=== PATIENT | female | born 1985 | race Caucasian/White ===

== ENCOUNTER 2017-08-18 10:15 | Outpatient (CLI) | payer BC | END 2017-08-18 10:16 | disposition home or self-care (01) | LOC: BICRAD 10:15 | PROVIDERS: ATTEND Surgery | DX: M54.5 Low back pain (principal); M47.816 Spondylosis without myelopathy or radiculopathy, lumbar region | CPT/HCPCS: 72110 ==

== ENCOUNTER 2017-09-10 10:44 | Outpatient (CLI) | payer BC ==
[2017-09-10] MEDS ORDERED: Gadobenate Dimeglumine 529 MG/1 ML (20ML VIAL) ONE (14:22)
== END 2017-09-10 10:45 | disposition home or self-care (01) ==
LOC: BICMRI 10:44
PROVIDERS: ATTEND Surgery
DX: M47.26 Other spondylosis with radiculopathy, lumbar region (principal); M51.16 Intervertebral disc disorders with radiculopathy, lumbar region
CPT/HCPCS: 72158; A9579

== ENCOUNTER 2017-09-30 09:14 | Outpatient (CLI) | payer BC ==
[2017-09-30 10:38] LABS: Hemoglobin 14.5 g/dL (12.0-16.0); Mean Corpuscular Hemoglobin 29.9 pg (27.0-31.0); Mean Corpuscular Volume 90.6 fl (81.0-99.0); Mean Platelet Volume 6.4 fL (7.4-10.4); Platelet Count 363 thou/uL (130-400); RBC Distribution Width 12.5 % (11.5-14.5); Red Blood Cell (RBC) Count 4.85 mill/uL (4.20-5.40); White Blood Cell (WBC) Count 10.7 thou/uL (4.8-10.8)
[2017-09-30 10:50] LABS: PTT 32.3 SEC (22.9-36.1); Prothrombin Time 13.6 SEC (12.0-14.7)
[2017-09-30 10:55] LABS: Anion Gap 9 mmol/L (10-20); BUN (Urea Nitrogen) 14 mg/dL (7.0-18.7); Calc. Creatinine Clearance 0 mL/min (70-130); Calcium 9.4 mg/dL (7.8-10.44); Carbon Dioxide 29 mmol/L (22-29); Chloride 106 mmol/L (98-107); Estimated GFR-MDRD Greater than 90; Glucose 84 mg/dL (70-105); Potassium 4.1 mmol/L (3.5-5.1); Sodium 140 mmol/L (136-145)
[2017-09-30 10:56] LABS: BHCG - Serum Negative (NEGATIVE); Pregs Control Background? CLEAR/WHITE (CLR/WHITE); Pregs Control Bar Appear? YES (CONTROL BAR)
--- NOTE | 2017-12-04 13:57 | EKG ---
Test Reason : Blood Pressure : / mmHG Vent. Rate : 071 BPM Atrial Rate : 071 BPM P-R Int : 140 ms QRS Dur : 086 ms QT Int : 372 ms P-R-T Axes : 053 091 044 degrees QTc Int : 404 ms Normal sinus rhythm with sinus arrhythmia Rightward axis Borderline ECG Confirmed by MITUL JONES, LESIA ([id number]) on 12/04/2017 1:56:38 PM Referred By: DOROTHY Confirmed By:LESIA BAUMAN MD
== END 2017-09-30 09:15 | disposition home or self-care (01) ==
LOC: LABBT 09:14
PROVIDERS: ATTEND Surgery
DX: Z01.818 Encounter for other preprocedural examination (principal); M54.16 Radiculopathy, lumbar region; M51.26 Other intervertebral disc displacement, lumbar region
CPT/HCPCS: 80048; 84703; 85027; 85610; 85730; 93005; 93010

== ENCOUNTER 2017-10-07 07:17 | Day surgery (SDC) | payer BC ==
[2017-09-30 09:40] VITALS: BMI 34.4
[2017-10-07] MEDS ORDERED: CEFAZOLIN/Water 2 GM/20 ML SYRINGE ONE (08:09)
[2017-10-07] MEDS ORDERED: Sodium Chloride 0.9% 10 ML ONE (09:40)
[2017-10-07] MEDS ORDERED: Bacitracin Zinc Ointment 30 gm TUBE ONE (09:40)
[2017-10-07] MEDS ORDERED: Thrombin 5000 UNITS/5 ML VIAL ONE (09:40)
[2017-10-07] MEDS ORDERED: HYDROmorphone 0.5 MG/0.5 ML SYRINGE ONE ×3 (09:59→14:30)
--- NOTE | 2017-10-07 12:38 | OP ---
PREPROCEDURE DIAGNOSES: Right L5 radiculopathy with right L4-L5 disk extrusion. POSTPROCEDURE DIAGNOSES: Right L5 radiculopathy with right L4-L5 disk extrusion. SURGEON: Jasen Cade M.D. PHYSICIAN ASSISTANT CERTIFIED: Odin Bill PA-C. PROCEDURE: 1. Right L4-L5 hemilaminotomy and foraminotomy with right L4-L5 diskectomy. 2. Use of operative microscope from microdissection (history of prior L4-L5 diskectomy). DESCRIPTION OF PROCEDURE: After informed consent was obtained from the patient, the patient brought to OR 12. Proper patient pause and identification was carried out. She was placed under excellent g eneral endotracheal anesthesia and positioned prone on the operating room table. All appropriate poi nts were padded. The prior midline L4-L5 wound was identified and linear michelle was made and this quiana on was sterilely cleansed, prepared, and draped. Proper patient pause and identification was carried out. The wound was then opened with a combination of sharp, monopolar, and blunt dissection and the right L4-L5 segment was exposed. Localization film confirmed our area of interest. We then brought the microscope in for microdissection, performed a right L4-L5 hemilaminotomy, foraminotomy, and dis kectomy, there was some scar tissue from the prior surgery, although still bone present over this reg ion as the patient had had prior left-sided bone work by report. We then working over the shoulder o f the right L5 nerve root, I identified disk material, this was removed and excellent decompression o f the right L5 nerve root, copious irrigation occurred, there was no spinal fluid leak. Hemostasis w as maximized throughout. The wound was then closed in anatomic layers following the sprinkling of v ancomycin powder. The patient then emerged from anesthesia.
[2017-10-07] MEDS ORDERED: Promethazine HCl 25 MG/ML VIAL SLOW IVP PRN (12:53)
[2017-10-07] MEDS ORDERED: Promethazine HCl 25 MG/ML VIAL IM PRN ×2 (12:53→13:01)
[2017-10-07] MEDS ORDERED: Meperidine HCl/PF 25 MG/ML VIAL SLOW IVP PRN (12:53)
[2017-10-07] MEDS ORDERED: Ondansetron HCl/PF 4 MG/2 ML Vial IVP PRN ×2 (12:53→13:01)
[2017-10-07] MEDS ORDERED: Bisacodyl 10 MG SUPP PR PRN (13:01)
[2017-10-07] MEDS ORDERED: HYDROcodone/Acetaminophen 7.5/325 mg Tablet PO PRN (13:01)
[2017-10-07] MEDS ORDERED: traMADol HCl 50 MG TAB PO PRN (13:01)
[2017-10-07] MEDS ORDERED: Fleet Enema 133 ML BOT PR PRN (13:01)
[2017-10-07] MEDS ORDERED: Milk Of Magnesia 30 ML UDCUP PO PRN (13:01)
[2017-10-07] MEDS ORDERED: Acetaminophen 325 MG TAB PO PRN (13:01)
[2017-10-07] MEDS ORDERED: Mag-Al 1200 mg/1200 mg/30 ML UDCUP PO PRN (13:01)
[2017-10-07] MEDS ORDERED: tiZANidine HCl 4 MG TAB PO PRN (13:01)
[2017-10-07] MEDS ORDERED: Fentanyl 100 MCG/2 ML VIAL ONE (13:49)
[2017-10-07] MEDS ORDERED: Promethazine HCl 25 MG/ML VIAL ONE (13:49)
[2017-10-07] MEDS ORDERED: Bupivacaine 0.5% 10 ML VIAL ONE (15:08)
[2017-10-07] MEDS ORDERED: Dexamethasone 4 mg/ml Vial ONE (15:09)
[2017-10-07] MEDS: Sodium Chloride 0.9% 1,000 ML IV SCH (16:29)
[2017-10-07] MEDS ORDERED: Glycopyrrolate 0.2 MG/ML 5 ML SYRINGE ONE (17:10)
[2017-10-07] MEDS ORDERED: Lidocaine 1% PF 5 ML VIAL ONE (17:10)
[2017-10-07] MEDS ORDERED: Dexamethasone 20 MG/5 ML VIAL ONE (17:10)
[2017-10-07] MEDS ORDERED: Propofol 200 MG/20 ML VIAL ONE (17:10)
[2017-10-07] MEDS ORDERED: Ondansetron HCl/PF 4 MG/2 ML Vial ONE (17:10)
[2017-10-07] MEDS: Acetaminophen/Codeine 30-300mg Tablet PO PRN (22:19)
[2017-10-08] MEDS: Acetaminophen/Codeine 30-300mg Tablet PO PRN ×2 (05:25→08:49)
[2017-10-08] MEDS: Sodium Chloride 0.9% 1,000 ML IV SCH (05:25)
[2017-10-08] MEDS ORDERED: Pregabalin 75 MG CAP PO SCH (09:00)
[2017-10-08 09:14] VITALS: BP 95/66; TEMP 97.7
--- NOTE | 2017-10-08 12:12 | PRG ---
DATE OF SERVICE: 10/08/2017 SUBJECTIVE: Ms. Delvalle is doing well postoperative day 1, right L4-L5 hemilaminotomy, foraminotomy, and diskectomy with resolution of her leg pain. She has excellent strength in her lower extremity. She has had no wound issues. We went over intraoperative and postoperative issues. We will plan fo r dismissal.
== END 2017-10-08 10:13 | disposition home or self-care (01) ==
LOC: SDC 07:17 → SURG A 13:01 → SDC 10-08 10:13
PROVIDERS: ATTEND Surgery
PROC: 0ST20ZZ Resection of Lumbar Vertebral Disc, Open Approach (ICD-10-PCS; principal; 2017-10-08)
PROC: 01NB0ZZ Release Lumbar Nerve, Open Approach (ICD-10-PCS; principal; 2017-10-08)
DX: M51.16 Intervertebral disc disorders with radiculopathy, lumbar region (principal); F32.9 Major depressive disorder, single episode, unspecified; F41.9 Anxiety disorder, unspecified; G40.909 Epilepsy, unspecified, not intractable, without status epilepticus; E66.9 Obesity, unspecified; Z68.34 Body mass index [BMI] 34.0-34.9, adult; Z98.890 Other specified postprocedural states
CPT/HCPCS: 76001; 96374; A4216; J1100; J1170; J2001; J2405; J2550; J2704; J3010; J3370; J3490

== ENCOUNTER 2018-08-10 10:28 | Outpatient (CLI) | payer BC ==
--- NOTE | 2018-08-10 13:49 | MRI ---
MRI LUMBAR SPINE WITH AND WITHOUT CONTRAST: Date: 08/10/18 COMPARISON: 09/10/17. HISTORY: Laminectomy syndrome. Low back pain. TECHNIQUE: MRI lumbar spine is performed with and without intravenous Gadolinium administration. Multisequential , multiplanar imaging is performed. FINDINGS: Appropriate T1 marrow signal intensity of the lumbar vertebra. Lumbar spine vertebral body height is maintained. There is no fracture. No significant STIR hyperintensity to suggest vertebral body edema or ligamentous injury. No pathologic enhancement. Symmetric signal intensity of the psoas muscles. Appropriate signal intensity in the visualized solid organs. Conus medullaris terminates at the mid T12 level. On the postcontrast images, there is no abnormal enhancement within the thecal sac, including the cau da equina and conus medullaris. T12-L1: Adequate disc hydration. No significant central canal stenosis or neural foraminal narrowing . L1-L2: Adequate disc hydration. No significant central canal stenosis or neural foraminal narrowing. L2-L3: Adequate disc hydration. No significant central canal stenosis or neural foraminal narrowing. L3-L4: Adequate disc hydration. No significant central canal stenosis or neural foraminal narrowing. L4-L5: Desiccation with mild loss of disc space height. Right laminectomy defect. There is no signif icant central canal stenosis. Minimal bilateral foraminal narrowing. On the postcontrast images, ther e is enhancing scar tissue at the laminectomy defect site. There is enhancing scar tissue in the righ t subarticular zone which is circumferential to the traversing right L5 nerve root. L5-S1: Desiccation without significant loss of disc space height. Minimal central disc protrusion. N o significant mass effect upon the thecal sac. There is a subtle STIR hyperintensity with a small foc us of enhancement involving the left and right subarticular margin of the disc. These areas of enhanc ement and hyperintensity are just lateral to the central disc protrusion. The left-sided annular fiss ure does abut the traversing left S1 nerve root. Minimal mass effect. Mild bilateral foraminal narrow ing. IMPRESSION: 1. Enhancing scar tissue in the right subarticular zone at L4-L5, circumferentially to the traversin g right L5 nerve root. 2. Central disc protrusion at L5-S1 with a small left and right subarticular annular fissures. The l eft-sided annular fissure does appear to be adjacent to and minimally abut the traversing left S1 ner ve root. POS: [facility]
== END 2018-08-10 10:29 | disposition home or self-care (01) ==
LOC: BICMRI 10:28
PROVIDERS: ATTEND Family Medicine
DX: M51.16 Intervertebral disc disorders with radiculopathy, lumbar region (principal); M96.1 Postlaminectomy syndrome, not elsewhere classified; M51.17 Intervertebral disc disorders with radiculopathy, lumbosacral region
CPT/HCPCS: 72158